=== PATIENT | male | born 2000 | race Caucasian/White ===

== ENCOUNTER 2020-12-07 22:14 | Emergency (ER) | payer OTHER, SELFPAY ==
[2020-12-07 22:26] VITALS: BP 162/85; PULSE 80; RESP 16; TEMP 37.2; O2SAT 98; BMI 30.1
[2020-12-07 23:05] LABS: COVID-19 Test Negative (Negative)
[2020-12-07 23:45] VITALS: BP 142/69; PULSE 67; RESP 16; TEMP 36.8; O2SAT 98
--- NOTE | 2020-12-07 23:59 | ED_ITS ---
HPI - Psych General Chief Complaint: Psychiatric Symptoms Stated Complaint: CRISIS, SI Source: patient and EMS Mode of arrival: EMS Limitations: no limitations History of Present Illness HPI Narrative: Patient history of depression was grieving from his dog's had argument with his mother spoke to his ex-girlfriend which caused more problems discussed started scratching his left forearm with fork girlfriend c alled for the help. Patient denied any suicidal ideation feels fine on Abilify for depression has a therapist and psychiatrist to follow at this time patient denies any suicidal ideation Related Data Home Medications Medication Instructions Recorded Confirmed aripiprazole 15 mg tablet 1 tab PO BEDTIME 12/07/20 12/07/20 Allergies Allergy/AdvReac Type Severity Reaction Status Date / Time pollen extracts Allergy Cough Verified 12/07/20 22:37 Pollen Allergy Mild Nasal Uncoded 12/07/20 22:37 congestion Review of Systems Review of Systems: Yes all other systems are reviewed and are negative [facility] Social History Social History Advance Directives: No Advance Directives Information Provided: Yes Physical Exam Vital Signs: Vital Signs: Last Vital Signs Temp 98.2 F 12/07/20 23:45 Pulse 67 12/07/20 23:45 Resp 16 12/07/20 23:45 BP 142/69 H 12/07/20 23:45 Pulse Ox 98 12/07/20 23:45 Body Mass Index 30.1 Appearance: Alert. Oriented X3. No acute distress. Eyes: PERRLA, No Nystagmus ENT: Pharynx normal. Oral Mucosa moist Neck: Normal inspection. Neck supple. CVS: Normal heart rate and rhythm. Pulses normal. Respiratory: No respiratory distress. Equal air entry bilateral, no wheezing/rales/rhonchi Abdomen: Soft and nontender. Bowel sounds are present, no mass palpable, no CVA tenderness Skin: Skin warm and dry. Normal skin color. Normal skin turgor. Extremities: No lower extremity edema. No calf tenderness psych: No suicidal ideation no hallucinations addition depression+ Neuro: Oriented X 3. No motor deficit. No sensory deficit.No cerebellar signs , cranial nerves II-XII intact MDM - Psych MDM Narrative Medical decision making narrative: Patient with hx of depression feels stable at this time no suicidal ideation seen by therapist will discharge patient home patient feels safe to go home Lab Data Labs: Lab Results 12/07/20 Range/Units 22:42 COVID-19 ([facility]) Negative (Negative) COVID-19 Clin Com See Note Discharge Plan Discharge Clinical Impression: Depression Qualifiers: Depression Type: major depressive disorder Major depression recurrence: recurrent Active/Remission status: currently active Major depression episode severity: moderate Qualified Code(s): F33.1 - Major depressive disorder, recurrent, moderate Patient Disposition: Home, Self-Care Instructions: Depression (ED) Additional Instructions: Continue to take your medication and follow-up with your psychiatrist/therapist Prescriptions: No Action aripiprazole 15 mg tablet 1 tab PO BEDTIME RF: 0
--- NOTE | 2020-12-07 23:59 | MHC.CARE ---
Pt presents to ED due to ex- girlfriend calling crisis reporting that pt was cutting his arm. Pt was sent to ED and reports he has been undergoing a lot of stress due to recent break up, and family dog passing away. pt admits to hx of depression, anxiety and AH. He reports at baseline he experiences AH however is able to differentiate and does not follow any commands. Pt reports he had been in an argument with his ex because she is nice to me when she wants me to buy her something, once I buy it for her she then tells me she's had sex with other guys. She keeps messing with my head, so I got angry today . Pt reports his last hospitalization was two years ago. He has a psychiatrist in [facility] Dr[facility] Renteria and is medication compliant. Pt reports he has no therapist. He did engage in cutting with a fork, superficial and he reports he never did that before. He states I didn't even know I was doing it . He reports I feel worthless not suicidal . 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 I contacted his mother who shares that she has no concerns for him and he could come home. She states he has been struggling lately and has a lot on his plate . Pt will be d/c and friend will be picking him up.
== END 2020-12-08 00:27 | disposition home or self-care (01) ==
PROVIDERS: Emergency Provider Internal Medicine
DX: F33.1 Major depressive disorder, recurrent, moderate (principal); R45.851 Suicidal ideations; Z79.899 Other long term (current) drug therapy; Z20.822 Contact with and (suspected) exposure to COVID-19
CPT/HCPCS: 36415; 87635; 99283; 99284